=== PATIENT | male | born 1980 | race Caucasian/White ===

== ENCOUNTER 2018-01-12 14:55 | Emergency (ER) | payer SELFPAY ==
[2018-01-12 15:07] VITALS: BP 122/82
[2018-01-12] MEDS ORDERED: BSS OPTH.SOL* BTL ONE (15:12)
[2018-01-12] MEDS ORDERED: Tetracaine 0.5% OPTH.SOL 4 ML* 1 DROP BTL ONE (15:12)
[2018-01-12] MEDS ORDERED: Fluorescein Sod TOPICAL 0.6* 0.6 MG TEST OPHTHALMIC ONE ×2 (15:12→15:41)
[2018-01-12] MEDS ORDERED: BSS OPTH.SOL* BTL OPHTHALMIC ONE (15:40)
[2018-01-12] MEDS ORDERED: Tetracaine 0.5% OPTH.SOL 4 ML* 1 DROP BTL LEFT EYE ONE (15:59)
--- NOTE | 2018-01-12 16:15 | UC ---
Eye Complaint HPI - HPI Summary HPI Summary: T[facility] HIT PT IN LEFT EYE AROUND 6:45 THIS MORNING. EYE IS TEARING AND VISION IS BLURRY. HAS EYE REDNESS AND IRRITATION. PT DOES NOT WEAR CONTACTS OR GLASSES. - History of Current Complaint Chief Complaint: UCEye Stated Complaint: EYE INJURY Time Seen by Provider: 01/12/18 15:29 Hx Obtained From: Patient Onset/Duration: Sudden Onset, Lasting Hours, Still Present Timing: Constant Severity Initially: Moderate Severity Currently: Moderate Pain Intensity: 8 Pain Scale Used: 0-10 Numeric Location of Injury: Globe Character: Foreign Body Sensation Aggravating Factor(s): Blinking Alleviating Factor(s): Nothing Associated Signs And Symptoms: Positive: Drainage (Clear), Vision Impairment Left. Negative: Photophobia - Allergies/Home Medications Allergies/Adverse Reactions: Allergies Allergy/AdvReac Type Severity Reaction Status Date / Time No Known Allergies Allergy Verified 01/12/18 15:07 PMH/Surg Hx/FS Hx/Imm Hx Previously Healthy: Yes - Surgical History Surgical History: Yes Surgery Procedure, Year, and Place: left wrist surgery - Family History Known Family History: Positive: Hypertension - Social History Alcohol Use: Occasionally Substance Use Type: None Smoking Status (MU): Light Every Day Tobacco Smoker Household Exposure Type: Cigarettes Review of Systems Constitutional: Negative Eyes: Blurred Vision, Drainage, Eye Redness Respiratory: Negative Cardiovascular: Negative Gastrointestinal: Negative All Other Systems Reviewed And Are Negative: Yes Physical Exam Triage Information Reviewed: Yes Appearance: Well-Appearing, Well-Nourished, Pain Distress - MODERATE Vital Signs: Initial Vital Signs Temp 99.8 F 01/12/18 15:01 Pulse 63 01/12/18 15:01 Resp 15 01/12/18 15:01 BP 122/82 01/12/18 15:01 Pulse Ox 98 01/12/18 15:01 Vital Signs Reviewed: Yes Eyes: Positive: Conjunctiva Inflamed - LEFT, Discharge - CLEAR DRAINAGE LEFT EYE , Other: - FLUORESCEIN STAINING SHOWS LEFT EYE CORNEAL ABRASION X 3 IN STREAK LIKE PATTERN. NO FB SEEN ENT: Positive: Hearing grossly normal Neck: Positive: Supple Respiratory: Positive: No respiratory distress, No accessory muscle use Cardiovascular: Positive: Pulses Normal Abdomen Description: Positive: Soft Musculoskeletal: Positive: No Edema Neurological: Positive: Alert Psychological: Positive: Age Appropriate Behavior Skin: Negative: rashes Eye Complaint Course/Dx - Differential Dx/Diagnosis Provider Diagnoses: LEFT EYE CORNEAL ABRASION Discharge - Sign-Out/Discharge Documenting (check all that apply): Discharge - Discharge Plan Condition: Stable Disposition: HOME Prescriptions: Ciprofloxacin 0.3% OPTH.MOLLY* [Cipro 0.3% Opth*] 1 drop LEFT EYE Q4H #1 btl Ketorolac Tromethamine/Pf [Acuvail] 0.5 % LEFT EYE QID PRN #1 bottle PRN Reason: Pain Patient Education Materials: Corneal Abrasion (ED) Forms: *Work Release Referrals: Trever Solis MD [Medical Doctor] - 2 Days Additional Instructions: YOU HAVE 3 SIGNIFICANT ABRASION ON YOUR LEFT CORNEA. USE THE DROPS PRESCRIBED AND FOLLOW-UP WITH OPHTHALMOLOGY IN 2 DAYS. Go to the ER without fail if you develop worsening pain, visual disturbances, nausea, purulent drainage or any other concerning symptoms. - Billing Disposition and Condition Condition: STABLE Disposition: HOME
== END 2018-01-12 16:20 | disposition home or self-care (01) ==
LOC: UCEAST 14:55
DX: S05.02XA Injury of conjunctiva and corneal abrasion without foreign body, left eye, initial encounter (principal); W22.8XXA Striking against or struck by other objects, initial encounter; Y93.9 Activity, unspecified; Y92.9 Unspecified place or not applicable; F17.210 Nicotine dependence, cigarettes, uncomplicated
CPT/HCPCS: 99202; A9270-GY; G0463